=== PATIENT | male | born 1970 | race African-American/Black ===

== ENCOUNTER 2017-06-04 22:33 | Emergency (ER) | payer OTHER ==
[~2017-06-04] VITALS: Ht 180.3 cm; Wt 74.8 kg
[~2017-06-04 22:33] MED LIST: ASCO500T9 PO; HYDR-3326 PO; LACT1CAP72 PO; LEVO500T2 PO; MULT-24 PO; SODI473S8 TOP; Zinc Sulfate PO
[2017-06-04 23:57] VITALS: BP 131/69
--- NOTE | 2017-06-05 00:47 | NUR ---
URINE SAMPLE OBTAINED AND SENT TO LAB.
[2017-06-05 00:55] LABS: APPEARANCE,URINE CLOUDY (CLEAR); BILIRUBIN,URINE NEGATIVE (NEGATIVE); BLOOD, URINE 3+ Ery/uL (NEGATIVE); KETONES,URINE NEGATIVE (NEGATIVE); LEUKOCYTE ESTERASE ,URINE 2+ (NEGATIVE); NITRITE, URINE POSITIVE (NEGATIVE); PROTEIN,URINE 2+ mg/dl (NEGATIVE); UGLUCOSE NEGATIVE (NEGATIVE)
[2017-06-05 00:56] LABS: COLOR,URINE DARK YELLOW (YELLOW)
[2017-06-05 01:04] LABS: BACTERIA,URINE Moderate /HPF (None Seen); RBC,URINE 81-100 /HPF (0-2); SQUAMOUS EPITHELIAL CELL,UR Rare /HPF (None Seen); WBC,URINE TOO NUMEROUS TO COUN /HPF (0-3)
[2017-06-05] MEDS ORDERED: CEFTRIAXONE 1 G VIAL ONE (01:28)
[2017-06-05] MEDS ORDERED: LIDOCAINE /MPF 1% VIAL 5 ML VIAL ONE (01:29)
[2017-06-05] MEDS ORDERED: CEFTRIAXONE 1 G VIAL IM ONE (01:30)
[2017-06-05] MEDS ORDERED: ACETAMINOPHEN ES 500 MG TABLET ONE (01:50)
[2017-06-05] MEDS ORDERED: ACETAMINOPHEN 325 MG TABLET PO ONE (02:00)
== END 2017-06-05 02:24 | disposition home or self-care (01) ==
LOC: ER 22:33
DX: M25.562 Pain in left knee (principal); N39.0 Urinary tract infection, site not specified; F32.9 Major depressive disorder, single episode, unspecified; F10.10 Alcohol abuse, uncomplicated; Z98.890 Other specified postprocedural states; Z88.2 Allergy status to sulfonamides; Z88.8 Allergy status to other drugs, medicaments and biological substances; V03.99XA Pedestrian with other conveyance injured in collision with car, pick-up truck or van, unspecified whether traffic or nontraffic accident, initial encounter; Y93.89 Activity, other specified; Y92.413 State road as the place of occurrence of the external cause; Y99.8 Other external cause status
CPT/HCPCS: 73564-TC; 81000-TC; 87086-TC; 87186-TC; A4606; J0696; J3490; Z7610

== ENCOUNTER 2017-12-28 14:18 | Inpatient (IN) | payer OTHER ==
[~2017-12-28] VITALS: Ht 180.3 cm; Wt 74.8 kg
[~2017-12-28 14:18] MED LIST changes: -HYDR-3326 PO; +HYDR-3974 PO
[2017-12-28] MEDS ORDERED: MORPHINE SULFATE INJ 2 MG/ML DISP.SYRIN ONE (14:46)
[2017-12-28] MEDS ORDERED: CEFTRIAXONE 1 G VIAL ONE (14:47)
[2017-12-28] MEDS ORDERED: PIPERACILLIN /TAZOBACTAM 3.375 G VIAL IV ONE (14:47)
[2017-12-28] MEDS ORDERED: ONDANSETRON HCL/PF 4 MG/2 ML VIAL ONE (14:47)
[2017-12-28] MEDS ORDERED: CLIN300C11 PO (14:55)
[2017-12-28] MEDS ORDERED: HYDR-548 PO (14:55)
[2017-12-28] MEDS ORDERED: MUPI22OI7 TD (14:55)
[2017-12-28] MEDS ORDERED: CEFTRIAXONE 1GM BAG (ER ONLY) 50 ML IV ONE (15:00)
[2017-12-28] MEDS ORDERED: IV NS 0.9% 1,000 ML BAG IV ONE (15:00)
[2017-12-28] MEDS ORDERED: PIPERACILLIN /TAZOBACTAM 3.375 G in IV D5W 50 ML IV ONE (15:00)
[2017-12-28] MEDS ORDERED: MORPHINE SULFATE INJ 2 MG/ML DISP.SYRIN IV ONE (15:00)
[2017-12-28] MEDS ORDERED: ONDANSETRON HCL/PF 4 MG/2 ML VIAL IVP ONE (15:00)
[2017-12-28] MEDS ORDERED: VANCOMYCIN 1 GM in IV D5W 250 ML IV ONE (15:00)
--- NOTE | 2017-12-28 15:03 | NUR ---
PAGED EPIC FOR PANEL - ON-CALL LAURIE DICKEY
--- NOTE | 2017-12-28 15:07 | NUR ---
CALLED NURSE SUP FOR MED/SURG BED
[2017-12-28 15:36] LABS: BASOPHILS # (AUTO) 0.2 /CMM (0.0-0.2); BASOPHILS % (AUTO) 1.5 % (0.0-2.0); EOSINOPHILS % (AUTO) 2.4 % (0.0-6.0); HEMATOCRIT 29 % (39-51); HEMOGLOBIN 8.8 g/dL (13.5-17.5); LYMPHOCYTES # (AUTO) 1.3 /CMM (0.8-4.8); MEAN CORPUSCULAR HEMOGLOBIN 20 PG (26.0-33.0); MEAN CORPUSCULAR HGB CONC 31 g/dl (31.0-36.0); MEAN CORPUSCULAR VOLUME 66 fL (80-96); MONOCYTES # (AUTO) 0.6 /CMM (0.1-1.30); MONOCYTES % (AUTO) 5.5 % (2.0-12.0); NEUTROPHILS % (AUTO) 77.6 % (43.0-81.0); PLATELET COUNT (AUTO) 705 /CMM (150-450); RDW COEFFICIENT OF VARIATION 19.7 (11.5-15.0); RED BLOOD CELL COUNT(AUTO) 4.36 MIL/uL (4.5-6.0); WHITE BLOOD COUNT (AUTO) 10.3 K/uL (4.3-11.0)
[2017-12-28 15:46] LABS: CALCIUM, SERUM 9.3 mg/dL (8.5-10.1); CREATININE 0.9 mg/dL (0.6-1.3); POTASSIUM 4.5 mmol/L (3.5-5.1)
[2017-12-28 15:50] LABS: INR 0.99 (0.85-1.15)
[2017-12-28 15:52] LABS: ALBUMIN 2.7 g/dL (3.4-5.0); BILIRUBIN,DIRECT 0.1 mg/dL (0.0-0.2); BILIRUBIN,TOTAL 0.1 mg/dL (0.2-1.0); TOTAL PROTEIN, SERUM 8.4 g/dL (6.4-8.2)
--- NOTE | 2017-12-28 15:52 | NUR ---
CALLED NURSE SUP AGAIN FOR BED
[2017-12-28] MEDS ORDERED: ENOXAPARIN SODIUM 40 MG/0.4 ML DISP.SYRIN SQ ONE (16:16)
[2017-12-28] MEDS ORDERED: Z GUARD REMEDY 2 OZ OINT TP PRN (16:30)
[2017-12-28] MEDS ORDERED: ONDANSETRON HCL/PF 4 MG/2 ML VIAL IVP PRN (16:30)
[2017-12-28] MEDS ORDERED: MAGNESIUM HYDROXIDE 30 ML UDC PO PRN (16:30)
[2017-12-28] MEDS ORDERED: MAG HYDROX/AL HYDROX/SIMETH 30 ML UDC PO PRN (16:30)
[2017-12-28] MEDS ORDERED: ACETAMINOPHEN 325 MG TABLET PO PRN (16:30)
[2017-12-28] MEDS ORDERED: ZOLPIDEM TARTRATE 5 MG TABLET PO PRN (16:30)
[2017-12-28] MEDS ORDERED: ENOXAPARIN SODIUM 40 MG/0.4 ML DISP.SYRIN SQ SCH (16:30)
--- NOTE | 2017-12-28 16:33 | NUR ---
PT GIVEN ALL FLUIDS AND ANTIBIOTICS PIV IN LEFT HAND RN REPORT GIVEN TOEDGAR, RN PT GOING TO ROOM 304
--- NOTE | 2017-12-28 16:40 | NUR ---
RECEIVED PATIENT IN NO APPARENT DISTRESS. BEDSIDE RAILS ARE UPX2. BED IS LOCKED AND LOWERED. VITAL SIGNS WITHIN NORMAL LIMITS. IV LINE IS INTACT AND PATENT. CALL LIGHT IS WITHIN REACH. WILL CONTINUE TO MONITOR.
[2017-12-28] MEDS: MUPIROCIN OINT 2% 22 GM TUBE SCH ×2 (17:00→17:46)
[2017-12-28 18:00] VITALS: BP 119/66
[2017-12-28] MEDS ORDERED: PIPERACILLIN /TAZOBACTAM 4.5 G in IV NS 0.9% 50 ML IV SCH (18:00)
--- NOTE | 2017-12-28 18:04 | NUR ---
BACTROBAN NON ADMINISTERED. NO SITE SPECIFIED OF YET. WOUND CONSULT REQUESTED.
--- NOTE | 2017-12-28 18:09 | NUR ---
MS RN CLOSING NOTES PATIENT IS RESTING IN BED IN NO APPARENT DISTRESS. BEDSIDE RAILS ARE UPX2. BED IS LOCKED AND LOWERED. CALL LIGHT IS WITHIN REACH. IV LINE IS INTACT AND PATENT. ALL NEEDS WERE MET. WILL ENDORSE CARE TO SANITATION TANK WASHER NURSE FOR KLAUDIA.
[2017-12-28] MEDS: IV NS 0.9% 1,000 ML IV PRN (18:36)
[2017-12-28] MEDS: HYDROCODONE/APAP 5/325MG 1 EACH TABLET PO PRN (18:40)
--- NOTE | 2017-12-28 19:30 | NUR ---
RN MS NOTES RECEIVED PATIENT IN BED AWARE. ALERT AND ORIENTED X4. VERBALLY RESPONSIVE. BREATHING EVEN AND UNLABORED. NO SOB NOTED. CURRENTLY WITH COMPLAINTS OF PAIN ON RIGHT HAND. INFORMED PATIENT THAT I WILL LOOK THROUGH HIS MEDICATIONS AND SEE WHAT I CAN GIVE HIM FOR PAIN - AGREED. IV LINE ON ON LEFT HAND #20 INTACT AND PATENT. ALL OTHER NEEDS ATTENDED TO. CALL LIGHT WITHIN REACH. BED ON LOWEST LOCKED POSITION. WILL CONTINUE TO MONITOR.
[2017-12-28 20:00] VITALS: BP 127/66
[2017-12-28] MEDS: ZOSYN IVPB 3.375 G in IV D5W 50ml IV SCH (23:34)
[2017-12-29] MEDS: HYDROCODONE/APAP 5/325MG 1 EACH TABLET PO PRN ×5 (02:36→21:16)
[2017-12-29] MEDS: ZOSYN IVPB 3.375 G in IV D5W 50ml IV SCH ×4 (05:30→23:52)
--- NOTE | 2017-12-29 06:14 | NUR ---
INESSA MS NOTES PATIENT REFUSED DRESSING ON DECUBITIS ULCER ON BUTTOCKS THROUGHOUT SHIFT. PER PATIENT, HE ONLY WANTS DIAPER. LICENSED SALES ASSISTANT WITNESSED. Addendum: 12/29/17 at 0628 by RAGHU WALLACE RN CHARGE NURSE MADE AWARE. AWAITING WOUND CONSULT FOR FURTHER ORDERS.
--- NOTE | 2017-12-29 06:30 | NUR ---
RN MS CLOSING NOTES PATIENT ASLEEP IN BED - EASILY AROUSABLE. IN STABLE CONDITION. BREATHING EVEN AND UNLABORED. NO SOB NOTED. CURRENTLY WITH NO COMPLAINTS OF PAIN OR DISCOMFORT. NO FACIAL GRIMACING. IV LINE ON ON LEFT HAND #20 INTACT AND PATENT - RUNNING NS @ 75ML/HR. KEPT CLEAN, DRY, AND COMFORTABLE. ALL OTHER NEEDS ATTENDED TO. CALL LIGHT WITHIN REACH. BED ON LOWEST LOCKED POSITION. WILL ENDORSE TO ONCOMING NURSE FOR CONTINUITY OF CARE.
--- NOTE | 2017-12-29 07:12 | NUR ---
MS RN OPENING NOTES RECEIVED PATIENT IN STABLE CONDITION. IN NO APPARENT DISTRESS. BEDSIDE RAILS ARE UPX2. BED IS LOCKED AND LOWERED. CALL LIGHT IS WITHIN REACH. IV LINE IS INTACT AND PATENT. WILL CONTINUE TO MONITOR.
[2017-12-29 08:00] VITALS: BP 103/50
[2017-12-29] MEDS: MUPIROCIN OINT 2% 22 GM TUBE SCH ×3 (08:21→16:13)
--- NOTE | 2017-12-29 08:22 | NUR ---
NON ADMINISTERED BACTROBAN THERE IS NO INDICATION YET OF WHERE TO APPLY BACTROBAN. AWAITING WOUND CONSULT. ASKED PATIENT THE APPLICATION LOCATION SINCE THIS IS HIS HOME MEDICATION BUT PATIENT STATES HE DOES NOT TAKE THIS MEDICATION AT HOME.
[2017-12-29 08:28] VITALS: BP 103/50
--- NOTE | 2017-12-29 10:10 | NUR ---
PATIENT REFUSED BLOOD DRAW. EXPLAINED THE NEED TO GET A BLOOD SAMPLE. PATIENT CONTINUES TO REFUSE. PATIENT ASKED TO HAVE BLOOD DRAWN IN 2 HOURS. LAB WILL RETURN TO MAKE ANOTHER ATTEMPT.
[2017-12-29] MEDS: IV NS 0.9% 1,000 ML IV PRN (11:10)
--- NOTE | 2017-12-29 13:48 | NUR ---
PATIENT REFUSED WOUND CULTURE WITH GS COLLECTION. EXPLAINED RISKS AND BENEFITS BUT PATIENT CONTINUES TO REFUSE. Addendum: 12/29/17 at 1359 by KIM FRANKS RN PATIENT STATES THAT HE WILL AGREE TO DO WOUND CULTURE LATER IN THE DAY WHEN HE IS NOT IN SO MUCH PAIN AND HE HAS HAD ENOUGH REST.
[2017-12-29 16:00] VITALS: BP 124/72
--- NOTE | 2017-12-29 17:22 | NUR ---
PATIENT REFUSES TO HAVE DIAPER CHANGED.
--- NOTE | 2017-12-29 18:14 | NUR ---
MS RN CLOSING NOTES PATIENT IS RESTING IN BED. IN NO APPARENT DISTRESS. BEDSIDE RAILS ARE UPX2. BED IS LOCKED AND LOWERED. CALL LIGHT IS WITHIN REACH. IV LINE IS INTACT AND PATENT. WILL ENDORSE CARE TO ELEMENTARY EDUCATION TUTOR NURSE FOR KLAUDIA.
--- NOTE | 2017-12-29 19:23 | NUR ---
RN MS OPENING NOTES RECEIVED PATIENT IN BED AWAKE. ALERT AND ORIENTED X4. VERBALLY RESPONSIVE. BREATHING EVEN AND UNLABORED. NO SOB NOTED. CURRENTLY WITH NO COMPLAINTS OF PAIN OR DISCOMFORT. IV LINE ON LEFT HAND #20 INTACT AND PATENT. ALL OTHER NEEDS ATTENDED TO. CALL LIGHT WITHIN REACH. BED ON LOWEST LOCKED POSITION. WILL CONTINUE TO MONITOR.
[2017-12-29] MEDS ORDERED: ENOXAPARIN SODIUM 40 MG/0.4 ML DISP.SYRIN SQ SCH (21:00)
--- NOTE | 2017-12-29 21:00 | NUR ---
RN MS NOTES PATIENT REQUESTED SPECIFICALLY FOR PLASTIC TAPE TO BE WRAPPED AROUND HIS FOURTH DIGIT FINGER ON HIS RIGHT HAND BECAUSE IT'S SWOLLEN AND "AIR" SEEMS TO CAUSE HIM PAIN ON IT. INFORMED PATIENT THAT WE WOULD RATHER LEAVE IT OPEN TO AIR AND MONITOR IT. PATIENT INSISTED ON THE PLASTIC TAPE TO BE WRAPPED AROUND IT.
--- NOTE | 2017-12-30 04:37 | NUR ---
RN MS NOTES PATIENT REQUESTED FOR A PAIN MEDICATION DUE TO THE PAIN ON HIS RIGHT HAND. INFORMED HIM THAT HE CAN GET NORCO. PATIENT REFUSED NORCO, STATING THAT IT DOESN'T WORK ON HIM. PER PATIENT HE RECEIVED MORPHINE IN THE ER AND THAT WORKED BEST FOR HIM. INFORMED PATIENT THAT I WILL TALK TO THE DOCTOR FIRST AND TRY TO GET AN ORDER. PAGED DR. BARNES AND INFORMED HIM THAT PATIENT IS REQUESTING FOR MORPHINE IV FOR THE PAIN ON HIS RIGHT HAND. DR. BARNES APPROVED FOR MORPHINE 4MG IV ONE TIME ONLY - NOTED AND CARRIED OUT.
[2017-12-30] MEDS: MORPHINE SULFATE INJ 4 MG/ML DISP.SYRIN IV ONE ×2 (04:58→05:18)
--- NOTE | 2017-12-30 05:00 | NUR ---
RN MS NOTES PATIENT NOTED WITH BLOOD ON THE FOURTH FINGER ON HIS RIGHT HAND WHERE HE WANTED A TAPE WRAPPED AROUND IT. INFORMED PATIENT THAT I NEED TO TAKE THE TAPE OUT AND APPLY A NEW DRESSING - PATIENT REFUSED. ASKED PATIENT MULTIPLE TIMES AGAIN AND EXPLAINED THE RISKS OF NOT HAVING THE DRESSING CHANGED - PATIENT STILL REFUSED. PER PATIENT IT WILL JUST HURT HIM IF THE DRESSING IS CHANGED. WILL CONTINUE TO MONITOR.
--- NOTE | 2017-12-30 05:00 | NUR ---
RN MS NOTES CHECKED FOR PATENCY ON PATIENT'S LEFT HAND IV LINE PRIOR TO GIVING MORPHINE - UNSUCCESSFUL. IV LINE WAS NOT FLUSHING AND PER PATIENT, IT IS HURTING HIM THE MORE I TRY. INFORMED PATIENT THAT I WILL NEED TO START A NEW IV LINE SO THAT I CAN ADMINISTER THE MORPHINE THAT HE REQUESTED FOR. PATIENT REFUSED A NEW LINE AND ALSO THE MORPHINE NOW. ASKED PATIENT MULTIPLE TIMES IF I CAN INSERT A NEW LINE SO THAT HE CAN GET HIS PAIN MEDICATION AND SO THAT HE DOESN'T HAVE TO MISS HIS IV ANTIBIOTICS, PATIENT PERSISTENTLY REFUSED. ASKED PATIENT IF HE WOULD LIKE TO HAVE A PICC LINE INSTEAD TO MINIMIZE GETTING POKED, PATIENT ALSO REFUSED. PER PATIENT, HE KNOWS HE IS A HARD STICK AND THAT "EVERYONE SHOULD JUST STOP TRYING TO POKE [HIM] AND GET AN ALTERNATIVE. PAGED DR. BARNES AND INFORMED HIM REGARDING PATIENT'S REFUSAL FOR A NEW IV LINE. ALSO INFORMED HIM REGARDING REFUSING PICC LINE. MADE DR. BARNES AWARE THAT HE HAS A ZOSYN SCHEDULED FOR 6AM THAT HE WILL MISS. PER DR. BARNES, "IF HE REFUSES, HE REFUSES. JUST NOTE IT DOWN AND LET THE DAY DOCTOR KNOW." WILL ENDORSE TO ONCOMING NURSE TO LET DAY DOCTOR KNOW.
[2017-12-30] MEDS: HYDROCODONE/APAP 5/325MG 1 EACH TABLET PO PRN ×2 (05:21→11:29)
[2017-12-30] MEDS: ZOSYN IVPB 3.375 G in IV D5W 50ml IV SCH (06:00)
[2017-12-30 06:36] LABS: BASOPHILS % (AUTO) 0.2 % (0.0-2.0); EOSINOPHILS % (AUTO) 3.6 % (0.0-6.0); HEMATOCRIT 27 % (39-51); LYMPHOCYTES # (AUTO) 1.5 /CMM (0.8-4.8); LYMPHOCYTES % (AUTO) 16.3 % (20.0-44.0); MEAN CORPUSCULAR HEMOGLOBIN 20 PG (26.0-33.0); MEAN CORPUSCULAR HGB CONC 30 g/dl (31.0-36.0); MEAN CORPUSCULAR VOLUME 68 fL (80-96); MONOCYTES # (AUTO) 0.4 /CMM (0.1-1.30); MONOCYTES % (AUTO) 4.7 % (2.0-12.0); NEUTROPHILS # (AUTO) 6.8 /CMM (1.8-8.9); NEUTROPHILS % (AUTO) 75.2 % (43.0-81.0); PLATELET COUNT (AUTO) 632 /CMM (150-450); RDW COEFFICIENT OF VARIATION 21.2 (11.5-15.0); RED BLOOD CELL COUNT(AUTO) 3.93 MIL/uL (4.5-6.0)
[2017-12-30 06:37] LABS: CALCIUM, SERUM 8.4 mg/dL (8.5-10.1); CREATININE 0.9 mg/dL (0.6-1.3); MAGNESIUM 2.1 mg/dL (1.8-2.4); PHOSPHORUS 2.8 mg/dL (2.5-4.9)
--- NOTE | 2017-12-30 06:39 | NUR ---
RN MS CLOSING NOTES PATIENT ASLEEP IN BED - EASILY AROUSABLE. IN STABLE CONDITION. BREATHING EVEN AND UNLABORED. NO SOB NOTED. CURRENTLY WITH NO COMPLAINTS OF PAIN OR DISCOMFORT. NO FACIAL GRIMACING. LAST NORCO GIVEN AT 0521. STILL WITH SOILED DRESSING ON FOURTH FINGER ON RIGHT HAND - REFUSES TO BE CHANGED. ALL OTHER NEEDS ATTENDED TO. CALL LIGHT WITHIN REACH. BED ON LOWEST LOCKED POSITION. WILL ENDORSE TO ONCOMING NURSE FOR CONTINUITY OF CARE.
--- NOTE | 2017-12-30 07:22 | NUR ---
MS RN OPENING NOTES RECEIVED PATIENT ASLEEP IN BED, EASILY AWAKENS. HOB ELEVATED, ON ROOM AIR, RESPIRATION EVEN AND UNLABORED. NO FACIAL GRIMACING OR SIGNS OF DISCOMFORTS OBSERVED AT THIS TIME. . DRESSING ON FOURTH FINGER ON RIGHT HAND INTACT BUT SOILED, WILL TRY TO CONVINCE HIM TODAY TO HAVE IT CHANGE. IV ACCESS ON LEFT HAND APPARENTLY NOT WORKING AND PT REFUSED TO HAVE NEW IV LINE INSERTED. SAFETY MEASURES IN PLACE. CALL LIGHT WITHIN REACH. BED ON LOWEST LOCKED POSITION. WILL CONTINUE TO MONITOR PT ACCORDINGLY.
[2017-12-30 08:00] VITALS: BP 121/57
[2017-12-30] MEDS: MUPIROCIN OINT 2% 22 GM TUBE SCH (09:00)
--- NOTE | 2017-12-30 09:30 | NUR ---
RN NOTES BACTROBAN OINTMENT NO ADMINISTER, THERE IS NO INDICATION YET OF WHERE TO APPLY BACTROBAN. WOUND NURSE AT BEDSIDE ASSESSING PT AND AWARE THAT IT'S A HOME MEDICATION BUT PATIENT STATES HE DOES NOT TAKE THIS MEDICATION AT HOME.
--- NOTE | 2017-12-30 09:53 | NUR ---
WOUND CARE CONSULT: PT PRESENTS WITH MULTIPLE WOUNDS PRESENT ON ADMISSION INCLUDING LEFT AND RT BUTTOCK STAGE 4 ULCERS, RT ANTERIOR THIGH RAISED WOUND, RT 3RD AND 4TH FINGER DRESSINGS (PT REFUSED REMOVAL AND ASSESSMENT OF FINGERS). RT HEEL SCARRING NOTED WELL BILATERAL ANKLE SCARRING AND SACRAL/BUTTOCK SCARRING. ALL SKIN PROTECTION AND WOUND CARE RECOMMENDATIONS DISCUSSED WITH NURSING STAFF. DEFER TO MD FOR FINGER WOUNDS. PT REFUSED TO HAVE FINGER DRESSINGS REMOVED. FIRST STEP MATTRESS ORDERED. PT IS PARAPLEGIC. SURGICAL CONSULT RECOMMENDED. WILL SEE PRN. Kathy Willett IN AGREEMENT WITH PLAN OF CARE. Addendum: 12/30/17 at 0956 by SRINIVAS SHAIKH WNDNU Amended: Links added.
[2017-12-30] MEDS ORDERED: DAKINS QUARTER STRENGTH (0.125%) 480 ML BOTTLE TOP SCH (10:00)
[2017-12-30] MEDS ORDERED: HYDROCODONE/APAP 10/325MG 1 EA TABLET PO PRN (11:00)
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
--- NOTE | 2017-12-30 11:38 | NUR ---
RN NOTES WOUND TREATMENTS DONE ON PT'S B/L BUTTOCKS AND RIGHT THIGH WOUNDS. WOUND CULTURE DONE ON SACRAL WOUNDS. PT REFUSED DRESSINGS ON HIS 2ND AND 3RD FINGERS ON RIGHT HAND TO BE REMOVED. PRN NORCO 5/325 GIVEN FOR PAIN ON HIS RIGHT HAND AND LOWER LEGS. WILL CONTINUE TO MONITOR
[2017-12-30] MEDS ORDERED: LEVOFLOXACIN (750 MG) 750 MG TABLET PO SCH (12:00)
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
--- NOTE | 2017-12-30 13:46 | NUR ---
RN NOTES PATIENT FOR DISCHARGE HOME THIS AFTERNOON. HE IS IN STABLE CONDITION TO GO HOME WITH DISCHARGE INSTRUCTIONS TO CONTINUE ANTIBIOTIC FROM PRE-ADMISSION. FOLLOW OUTPATIENT WITH WOUND CARE CENTER NEXT TO HOSPITAL. WILL INFORMED AND EXPLAINED TO PATIENT.
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
== END 2017-12-30 14:00 | disposition home or self-care (01) | DRG 383 ==
LOC: ER 14:21 → MED 16:26
PROVIDERS: ADMIT Internal Medicine; ATTEND Internal Medicine
DX: L03.113 Cellulitis of right upper limb (principal); G82.20 Paraplegia, unspecified; L02.415 Cutaneous abscess of right lower limb; Z59.0 Homelessness; K21.9 Gastro-esophageal reflux disease without esophagitis; N31.9 Neuromuscular dysfunction of bladder, unspecified; F32.9 Major depressive disorder, single episode, unspecified; T14.8XXS Other injury of unspecified body region, sequela; W34.00XS Accidental discharge from unspecified firearms or gun, sequela; Z88.1 Allergy status to other antibiotic agents; Z88.2 Allergy status to sulfonamides; Z79.899 Other long term (current) drug therapy; M54.9 Dorsalgia, unspecified; X58.XXXA Exposure to other specified factors, initial encounter; F43.10 Post-traumatic stress disorder, unspecified; Y99.9 Unspecified external cause status; Z83.3 Family history of diabetes mellitus; Z91.19 Patient's noncompliance with other medical treatment and regimen; F12.929 Cannabis use, unspecified with intoxication, unspecified
CPT/HCPCS: 36415; 73120-TC; 73552; 80048-TC; 80076-TC; 83605-TC; 83690-TC; 83735-TC; 84100-TC; 85025-TC; 85730-TC; 87040-TC; 87070-TC; 87081-TC; A4216; A4606; A6253; A6402; A6403; J0696; J1650; J2270; J2405; J2543; J3370; J7030; J7060; Z7610

== ENCOUNTER 2018-05-29 14:36 | Emergency (ER) | payer OTHER ==
[~2018-05-29] VITALS: Ht 165.1 cm; Wt 59.0 kg
[~2018-05-29 14:36] MED LIST changes: -ASCO500T9 PO; +CLIN300C11 PO; -HYDR-3974 PO; +HYDR-4354 PO; -LACT1CAP72 PO; -LEVO500T2 PO; -MULT-24 PO; +MUPI22OI7 TD; -SODI473S8 TOP; -Zinc Sulfate PO
[2018-05-29 15:08] VITALS: BP 123/82
[2018-05-29] MEDS ORDERED: HYDROCODONE/APAP 10/325MG 1 EA TABLET PO ONE (16:00)
[2018-05-29] MEDS ORDERED: HYDROCODONE/APAP 5/325MG 1 EACH TABLET ONE (16:07)
--- NOTE | 2018-05-29 16:09 | NUR ---
BOBBI received a call from Portia in the ED requesting to see the pt. for homeless resources. Pt. is a 47 year old male who came to [facility] ED complaining of right toe infection. BOBBI is familiar with the pt. from a previous admission in 2018. BOBBI met with pt. bedside. Pt. is alert and oriented x 4. Pt. appears depressed and was crying. Pt. states he is tired and wants to . SW asked the pt. if he is suicidal with a plan. Pt. stated, " no, i am not suicidal, I like myself too much." Pt. is wheelchair bound and is able to transfer himself to the wheelchair independently. BOBBI gave pt. the following resources: [phone] [facility] program list and informed pt. of the apple picker times and location for [facility] is [address] [place]. [place] ;Homeless resource directory list, list of mental health clinics such as Mental Health clinics, [facility] Homeless Program [address] [place], [place] [id number] [facility] [address] [facility], 2nd [place] [address] Main Number: Adult Full Service Partnership (AFSP): Contact [facility] [address] [place] [address] Health Clinics: [facility] [address] [facility], [address] [place]. [place] Hours: M, T, Th, F 8:30AM-4:30PM Walk-ins allowed Provide medical screening and pharmacy [facility] [address] [address] [place] [id number] Hours M-F 8AM-3:30PM Walk-ins allowed Provide medical screening and pharmacy Pt. was given a meal and tap card for transportation. Homeless Patient Waiver Form was signed by pt. with INESSA Jay present and placed in pt's chart.
[2018-05-29] MEDS ORDERED: HYDROCODONE/APAP 10/325MG 1 EA TABLET ONE (16:12)
== END 2018-05-29 16:24 | disposition home or self-care (01) ==
LOC: ER 14:37
DX: B35.1 Tinea unguium (principal); G82.20 Paraplegia, unspecified; L30.9 Dermatitis, unspecified; F12.90 Cannabis use, unspecified, uncomplicated; F32.9 Major depressive disorder, single episode, unspecified; D64.9 Anemia, unspecified; Z99.3 Dependence on wheelchair; Z59.0 Homelessness; Z98.890 Other specified postprocedural states; Z88.2 Allergy status to sulfonamides; Z88.1 Allergy status to other antibiotic agents
CPT/HCPCS: 99282; A4606; Z7610

== ENCOUNTER 2019-02-07 14:36 | Emergency (ER) | payer OTHER ==
[~2019-02-07] VITALS: Ht 165.1 cm; Wt 59.0 kg
[2019-02-07 14:36] VITALS: BP 99/88
--- NOTE | 2019-02-07 15:01 | NUR ---
SEEN AND EXAMINED BY .
[2019-02-07] MEDS ORDERED: HYDROCODONE/APAP 5/325MG 1 EACH TABLET ONE (15:04)
--- NOTE | 2019-02-07 15:26 | NUR ---
WOUND CLEANING AND DIAPER CHANGE DONE.
[2019-02-07] MEDS ORDERED: HYDROCODONE/APAP 5/325MG 1 EACH TABLET PO ONE (15:30)
--- NOTE | 2019-02-07 15:35 | NUR ---
Patient discharged to home in stable condition. Written and verbal after care instructions given. Patient verbalizes understanding of instruction.
== END 2019-02-07 15:36 | disposition home or self-care (01) ==
LOC: ER 14:36
DX: L02.31 Cutaneous abscess of buttock (principal); G82.20 Paraplegia, unspecified; G83.9 Paralytic syndrome, unspecified; E11.9 Type 2 diabetes mellitus without complications; F17.200 Nicotine dependence, unspecified, uncomplicated; F32.9 Major depressive disorder, single episode, unspecified; D64.9 Anemia, unspecified; Z98.890 Other specified postprocedural states; Z88.2 Allergy status to sulfonamides; Z60.2 Problems related to living alone
CPT/HCPCS: 99283; A6253; A6403 ×2

== ENCOUNTER 2019-03-04 12:14 | Emergency (ER) | payer OTHER ==
[~2019-03-04] VITALS: Ht 180.3 cm; Wt 74.8 kg
[2019-03-04 12:20] VITALS: BP 111/66
--- NOTE | 2019-03-04 12:23 | NUR ---
CALLED IN WAITING ROOM. NO ANSWER.
[2019-03-04] MEDS ORDERED: LIDOCAINE 1%-EPI 1:100,000 20 ML VIAL TP ONE (13:30)
[2019-03-04 13:36] LABS: BASOPHILS # (AUTO) 0.1 /CMM (0.0-0.2); BASOPHILS % (AUTO) 1.5 % (0.0-2.0); EOSINOPHILS % (AUTO) 2.7 % (0.0-6.0); HEMATOCRIT 32 % (39-51); HEMOGLOBIN 9.9 g/dL (13.5-17.5); LYMPHOCYTES % (AUTO) 20.9 % (20.0-44.0); MEAN CORPUSCULAR HGB CONC 31 g/dl (31.0-36.0); MEAN CORPUSCULAR VOLUME 77 fL (80-96); MONOCYTES # (AUTO) 0.5 /CMM (0.1-1.30); MONOCYTES % (AUTO) 9.5 % (2.0-12.0); NEUTROPHILS # (AUTO) 3.2 /CMM (1.8-8.9); NEUTROPHILS % (AUTO) 65.4 % (43.0-81.0); PLATELET COUNT (AUTO) 467 /CMM (150-450); RED BLOOD CELL COUNT(AUTO) 4.14 MIL/uL (4.5-6.0); WHITE BLOOD COUNT (AUTO) 4.9 K/uL (4.3-11.0)
[2019-03-04] MEDS ORDERED: HYDROCODONE/APAP 10/325MG 1 EA TABLET ONE (13:42)
[2019-03-04 13:50] LABS: CALCIUM, SERUM 8.8 mg/dL (8.5-10.1); CREATININE 0.9 mg/dL (0.6-1.3); POTASSIUM 3.8 mmol/L (3.5-5.1)
[2019-03-04] MEDS ORDERED: HYDROCODONE/APAP 10/325MG 1 EA TABLET PO ONE (14:00)
[2019-03-04] MEDS ORDERED: LIDOCAINE 1%-EPI 1:100,000 20 ML VIAL ONE (14:00)
[2019-03-04] MEDS ORDERED: CLINDAMYCIN 600 MG in IV D5W 100 ML IV ONE (14:30)
[2019-03-04] MEDS ORDERED: CEFTRIAXONE 1GM BAG (ER ONLY) 1 GM/50 ML PIGGYBACK IV ONE (14:30)
== END 2019-03-04 16:31 | disposition home or self-care (01) ==
LOC: ER 12:14
DX: L02.31 Cutaneous abscess of buttock (principal); G82.20 Paraplegia, unspecified; F32.9 Major depressive disorder, single episode, unspecified; F17.200 Nicotine dependence, unspecified, uncomplicated; F10.10 Alcohol abuse, uncomplicated; Y90.9 Presence of alcohol in blood, level not specified; Z98.890 Other specified postprocedural states; Z88.2 Allergy status to sulfonamides; Z60.2 Problems related to living alone; Z79.899 Other long term (current) drug therapy; Z88.1 Allergy status to other antibiotic agents
CPT/HCPCS: 10060; 36415; 80048; 85025; 87040 ×2; 96365; 96367; 99283; A6403; J0696; J3490 ×2; J7060

== ENCOUNTER 2019-03-30 13:49 | Emergency (ER) | payer OTHER ==
[~2019-03-30] VITALS: Ht 180.3 cm; Wt 74.8 kg
[2019-03-30 14:02] VITALS: BP 122/71
--- NOTE | 2019-03-30 14:21 | NUR ---
patient left and refused to sign discharge paper MD made aware.
== END 2019-03-30 14:21 | disposition home or self-care (01) ==
LOC: ER 13:49
DX: L89.159 Pressure ulcer of sacral region, unspecified stage (principal); L08.89 Other specified local infections of the skin and subcutaneous tissue; G82.20 Paraplegia, unspecified; F32.9 Major depressive disorder, single episode, unspecified; F10.10 Alcohol abuse, uncomplicated; F17.200 Nicotine dependence, unspecified, uncomplicated; Y90.9 Presence of alcohol in blood, level not specified; Z60.2 Problems related to living alone; Z79.899 Other long term (current) drug therapy; Z88.2 Allergy status to sulfonamides; Z88.8 Allergy status to other drugs, medicaments and biological substances

== ENCOUNTER → 2019-06-04 | Emergency (ER) | payer OTHER ==
--- NOTE | 2019-06-04 18:34 | NUR ---
PT CALED TO TRIAGE, PT NOT IN WAITING ROOM
== END | disposition left against medical advice (07) ==
LOC: ER 17:59
DX: Z53.21 Procedure and treatment not carried out due to patient leaving prior to being seen by health care provider (principal)

== ENCOUNTER 2020-03-10 16:32 | Emergency (ER) | payer OTHER ==
[~2020-03-10] VITALS: Ht 177.8 cm; Wt 70.8 kg
--- NOTE | 2020-03-10 17:07 | NUR ---
ER Shane informed this SW about patient wanting homeless resources. SW met with the patient. Patient is a 49 year-old male in a wheelchair. Patient expressed interest in wanting to be placed in a facility. SW provided the following information in patient's chart. Substance Abuse resources provided included: [facility] Substance Abuse Self-Helpline ([facility]) ; [facility] [address] [facility]. [place] [id number] ; [facility] [address] [facility] [address] ; [facility] [address] [facility] [phone] ; [facility] [address] [facility] [phone] ; [facility] [address] [facility] [phone] ; [facility] [address] [facility] [phone] ; [facility] Substance Abuse Helpline([facility])-[facility] ; [facility] ; [facility] [place]; [facility] [place]; [facility] [place] aida; [place] [facility] [place]; [place]; [facility] [place]; [facility], [facility]. Grants; Alcoholics Anonymous -SFV; Xk-Utoc-Xbenymj ; Marijuana Anonymous -SFV; Narcotics Anonymous www.na.org. Year-round shelters : [facility] [address] [place] [address] ; [facility] [place] [address] [place] [address]; [place] [facility] [facility] [address] [facility] [phone] Hygiene: [facility]: [address] [place] ; [facility] [address] [facility] ; [facility] [address] [place] . Food Resources: [facility] [facility] at [facility]- [address] [place]; Meet Each Need wit Dignity ([facility]) [address] [facility]. [place]; [facility] [address] [facility]; [facility] [address] [place] [address] [place]. Mental Health resources provided: [facility] [address] [place] [address] ; [facility] [address], [place] [address] ; [facility] [address] [place] [address] ; [facility] [address] [place], [place] [phone]
--- NOTE | 2020-03-10 17:16 | NUR ---
PT C/O URI SYMPTOMS. DENIES CP, SOB, DIZZINESS, N/V AT THIS TIME. PT SEEN & EVAL'D BY DR. MCCONNELL. COVID TEST DONE & SENT TO LAB.
[2020-03-10 17:26] LABS: BASOPHILS # (AUTO) 0.1 /CMM (0.0-0.2); BASOPHILS % (AUTO) 1.1 % (0.0-2.0); EOSINOPHILS % (AUTO) 2.7 % (0.0-6.0); HEMATOCRIT 34 % (39-51); HEMOGLOBIN 10.7 g/dL (13.5-17.5); LYMPHOCYTES # (AUTO) 1.3 /CMM (0.8-4.8); LYMPHOCYTES % (AUTO) 15.7 % (20.0-44.0); MEAN CORPUSCULAR HGB CONC 32 g/dl (31.0-36.0); MEAN CORPUSCULAR VOLUME 83 fL (80-96); MONOCYTES # (AUTO) 0.6 /CMM (0.1-1.30); NEUTROPHILS # (AUTO) 6.1 /CMM (1.8-8.9); NEUTROPHILS % (AUTO) 73.5 % (43.0-81.0); PLATELET COUNT (AUTO) 622 /CMM (150-450); RED BLOOD CELL COUNT(AUTO) 4.08 MIL/uL (4.5-6.0); WHITE BLOOD COUNT (AUTO) 8.3 K/uL (4.3-11.0)
[2020-03-10 17:30] LABS: CALCIUM, SERUM 8.7 mg/dL (8.5-10.1); POTASSIUM 4.1 mmol/L (3.5-5.1)
[2020-03-10 17:36] LABS: BILIRUBIN,TOTAL 0.2 mg/dL (0.2-1.0); TOTAL PROTEIN, SERUM 8.3 g/dL (6.4-8.2)
[2020-03-10] MEDS ORDERED: IOHEXOL-300 100 ML VIAL IV ONE (17:46)
[2020-03-10] MEDS ORDERED: IV NS 0.9% 250 ML IV ONE (17:46)
--- NOTE | 2020-03-10 19:38 | NUR ---
Patient discharged to home in stable condition. Written and verbal after care instructions given. Patient verbalizes understanding of instruction. Pt refused to sign MD ced aware.
[2020-03-10 19:39] VITALS: BP 130/77
--- NOTE | 2020-03-10 19:40 | NUR ---
IV removed. Catheter intact and site benign. Pressure and 4x4 applied to site. No bleeding noted.
== END 2020-03-10 19:41 | disposition home or self-care (01) ==
LOC: ER 16:36
DX: D47.3 Essential (hemorrhagic) thrombocythemia (principal); D64.9 Anemia, unspecified; R10.33 Periumbilical pain; Z59.0 Homelessness; Z20.828 Contact with and (suspected) exposure to other viral communicable diseases; Z88.2 Allergy status to sulfonamides; G82.20 Paraplegia, unspecified; T14.8XXS Other injury of unspecified body region, sequela; L89.90 Pressure ulcer of unspecified site, unspecified stage; R03.0 Elevated blood-pressure reading, without diagnosis of hypertension
CPT/HCPCS: 36415; 74177; 80048; 80076; 83690; 85025; 87426; 99285; C9803; J7050; Q9967

== ENCOUNTER 2022-01-21 15:39 | Emergency (ER) | payer OTHER ==
[~2022-01-21] VITALS: Ht 180.3 cm; Wt 77.1 kg
[~2022-01-21 15:39] MED LIST changes: -CLIN300C11 PO; +CLIN300C12 PO
--- NOTE | 2022-01-21 15:41 | NUR ---
[facility] ER BED 15, HOMELESS, L BUTTOCK INFECTION, "SMELLS BAD" HOSPITALIZED IN [place] A WEEK AGO, SAME REASON, AAOX3, BREATHING EVEN AND NON LABORED, CONNECTED TO MONITOR.
[2022-01-21] MEDS ORDERED: PIPERACILLIN /TAZOBACTAM 3.375 G in IV D5W 50 ML IV ONE (17:00)
[2022-01-21] MEDS ORDERED: VANCOMYCIN 1 GM in IV D5W 250 ML IV ONE (17:00)
[2022-01-21] MEDS ORDERED: IOHEXOL-300 100 ML VIAL IV ONE (17:05)
[2022-01-21] MEDS ORDERED: IV NS 0.9% 250 ML IV ONE (17:06)
[2022-01-21] MEDS ORDERED: CT SWABBABLE VALVE TRANS SET 1 EA INFUS.SET MC ONE (17:06)
--- NOTE | 2022-01-21 17:20 | NUR ---
COVID SWAB COLLECTED AND SENT TO LAB
--- NOTE | 2022-01-21 17:23 | NUR ---
PT TAKEN TO RADIOLOGY FOR CT
[2022-01-21 17:31] LABS: BASOPHILS % (AUTO) 0.4 % (0.0-2.0); EOSINOPHILS % (AUTO) 3.3 % (0.0-6.0); HEMATOCRIT 24 % (39-51); HEMOGLOBIN 7.5 g/dL (13.5-17.5); LYMPHOCYTES # (AUTO) 1.7 K/uL (0.8-4.8); MEAN CORPUSCULAR HGB CONC 32 g/dl (31.0-36.0); MEAN CORPUSCULAR VOLUME 73 fL (80-96); MONOCYTES % (AUTO) 9.1 % (2.0-12.0); NEUTROPHILS # (AUTO) 7.7 K/uL (1.8-8.9); NEUTROPHILS % (AUTO) 71.2 % (43.0-81.0); PLATELET COUNT (AUTO) 634 K/uL (150-450); RED BLOOD CELL COUNT(AUTO) 3.22 MIL/uL (4.5-6.0); WHITE BLOOD COUNT (AUTO) 10.8 K/uL (4.3-11.0)
[2022-01-21 17:46] LABS: CARBON DIOXIDE 31 mmol/L (21-32); CHLORIDE 104 mmol/L (98-107); CREATININE 0.9 mg/dL (0.6-1.3); GLUCOSE 92 mg/dL (74-106); POTASSIUM 3.6 mmol/L (3.5-5.1); SODIUM SERUM 139 mmol/L (136-145); UREA NITROGEN, BLOOD 21 mg/dL (7-18)
--- NOTE | 2022-01-21 17:50 | NUR ---
MOVE SHEET SUBMITTED.
[2022-01-21 18:01] LABS: ALANINE AMINOTRANSFERASE 18 U/L (12-78); ALBUMIN 2.4 g/dL (3.4-5.0); ALKALINE PHOSPHATASE 113 U/L (46-116); ASPARTATE AMINOTRANSFERASE 15 U/L (15-37); BILIRUBIN,DIRECT 0.1 mg/dL (0.0-0.2); BILIRUBIN,TOTAL 0.2 mg/dL (0.2-1.0); TOTAL PROTEIN, SERUM 7.9 g/dL (6.4-8.2)
[2022-01-21] MEDS ORDERED: IV NS 0.9% 1,000 ML BAG IV ONE (18:30)
[2022-01-21 19:04] LABS: EOSINOPHILS % (MANUAL) 2 % (0-4); LYMPHOCYTES % (MANUAL) 18 % (16-48); MONOCYTES % (MANUAL) 4 % (0-11.0); NEUTROPHILS % (MANUAL) 76 (42-76)
[2022-01-21] MEDS ORDERED: CEPH500C2 PO (19:08)
[2022-01-21] MEDS ORDERED: DOXY100C2 PO (19:08)
--- NOTE | 2022-01-21 19:19 | NUR ---
Patient does not wish to proceed with medical care recommended by Dr. Rutledge. Patient given information related to possible complications, up to and including , which could occur as a result of leaving the hospital at this time. Patient verbalizes understanding of risks involved due to leaving against medical advice. Patient has signed AMA form.
--- NOTE | 2022-01-21 19:20 | NUR ---
IV removed. Catheter intact and site benign. Pressure and 4x4 applied to site. No bleeding noted.Patient discharged to home in stable condition. Written and verbal after care instructions given. Patient verbalizes understanding of instruction.
[2022-01-21 19:23] VITALS: BP 114/66
== END 2022-01-21 19:24 | disposition left against medical advice (07) ==
LOC: ER 15:43
DX: M86.60 Other chronic osteomyelitis, unspecified site (principal); E87.2 Acidosis; D50.9 Iron deficiency anemia, unspecified; D75.839 Thrombocytosis, unspecified; R70.0 Elevated erythrocyte sedimentation rate; R79.82 Elevated C-reactive protein (CRP); Z53.29 Procedure and treatment not carried out because of patient's decision for other reasons; I49.3 Ventricular premature depolarization; L89.159 Pressure ulcer of sacral region, unspecified stage; G82.20 Paraplegia, unspecified; Z59.00 Homelessness unspecified; Z91.19 Patient's noncompliance with other medical treatment and regimen; T14.90XS Injury, unspecified, sequela; X95.9XXS Assault by unspecified firearm discharge, sequela; Z20.822 Contact with and (suspected) exposure to COVID-19
CPT/HCPCS: 99291; 74177; 96365; 71045; 96367; 87426; 93005; 84145; 85025; 80048; 87040 ×2; 83605; 80076; 85652; 36415; 84484; 85730; 86140; 85007; J3370; J2543; J7060; J7030; J7050; Q9967; C9803

== ENCOUNTER 2022-01-24 22:57 | Emergency (ER) | payer OTHER ==
[~2022-01-24 22:57] MED LIST changes: +CEPH500C2 PO; -CLIN300C12 PO; +DOXY100C2 PO; -HYDR-4354 PO; -MUPI22OI7 TD
--- NOTE | 2022-01-25 01:53 | NUR ---
CALLED FOR TRIAGE, NO ANSWER
--- NOTE | 2022-01-25 02:01 | NUR ---
CALLED PT TO TRIAGE ROOM. NO RESPONSE
--- NOTE | 2022-01-25 02:17 | NUR ---
CALLED PT FOR TRIAGE. BORA ISSA
== END 2022-01-25 02:19 | disposition home or self-care (01) ==
LOC: ER 22:59
DX: Z53.21 Procedure and treatment not carried out due to patient leaving prior to being seen by health care provider (principal)

== ENCOUNTER 2022-01-25 08:08 | Inpatient (IN) | payer OTHER ==
[~2022-01-25] VITALS: Ht 167.6 cm; Wt 59.0 kg
[2022-01-25] MEDS ORDERED: CEFEPIME 1 GM in IV D5W 50 ML IV ONE (10:00)
[2022-01-25] MEDS ORDERED: VANCOMYCIN 1 GM in IV D5W 250 ML IV ONE (10:00)
[2022-01-25 10:26] LABS: BASOPHILS % (AUTO) 0.4 % (0.0-2.0); EOSINOPHILS % (AUTO) 3.9 % (0.0-6.0); HEMATOCRIT 24 % (39-51); HEMOGLOBIN 7.6 g/dL (13.5-17.5); LYMPHOCYTES # (AUTO) 1.5 K/uL (0.8-4.8); LYMPHOCYTES % (AUTO) 16.1 % (20.0-44.0); MEAN CORPUSCULAR HGB CONC 31 g/dl (31.0-36.0); MEAN CORPUSCULAR VOLUME 74 fL (80-96); MONOCYTES # (AUTO) 0.5 K/uL (0.1-1.30); MONOCYTES % (AUTO) 5.4 % (2.0-12.0); NEUTROPHILS % (AUTO) 74.2 % (43.0-81.0); PLATELET COUNT (AUTO) 661 K/uL (150-450); RED BLOOD CELL COUNT(AUTO) 3.29 MIL/uL (4.5-6.0); WHITE BLOOD COUNT (AUTO) 9.4 K/uL (4.3-11.0)
[2022-01-25 10:45] LABS: ALBUMIN 2.2 g/dL (3.4-5.0); BILIRUBIN,TOTAL 0.1 mg/dL (0.2-1.0); TOTAL PROTEIN, SERUM 7.7 g/dL (6.4-8.2)
[2022-01-25 10:49] LABS: CREATININE 0.8 mg/dL (0.6-1.3); POTASSIUM 4.6 mmol/L (3.5-5.1)
[2022-01-25 10:51] LABS: C-REACTIVE PROTEIN 7.8 mg/dL (0.0-0.9)
[2022-01-25 11:00] LABS: BILIRUBIN,DIRECT 0.1 mg/dL (0.0-0.2)
[2022-01-25] MEDS ORDERED: IV NS 0.9% 250 ML IV ONE (11:08)
[2022-01-25] MEDS ORDERED: CT SWABBABLE VALVE TRANS SET 1 EA INFUS.SET MC ONE (11:08)
[2022-01-25] MEDS ORDERED: IOHEXOL-300 100 ML VIAL IV ONE (11:08)
[2022-01-25] MEDS ORDERED: MAG HYDROX/AL HYDROX/SIMETH 30 ML UDC PO PRN (11:30)
[2022-01-25] MEDS ORDERED: MAGNESIUM HYDROXIDE 30 ML UDC PO PRN (11:30)
[2022-01-25] MEDS ORDERED: ACETAMINOPHEN 325 MG TABLET PO PRN (11:30)
[2022-01-25] MEDS ORDERED: ONDANSETRON HCL/PF 4 MG/2 ML VIAL IVP PRN (11:30)
[2022-01-25] MEDS ORDERED: Z GUARD REMEDY 4 OZ OINT TP PRN (11:30)
[2022-01-25 12:14] LABS: BASOPHILS % (MANUAL) 0 % (0.0-2.0); EOSINOPHILS % (MANUAL) 1 % (0-4); LYMPHOCYTES % (MANUAL) 18 % (16-48); MONOCYTES % (MANUAL) 5 % (0-11.0); NEUTROPHILS % (MANUAL) 76 (42-76)
[2022-01-25] MEDS: ZOSYN IVPB 3.375 G in IV D5W 50ml IV SCH (18:41)
[2022-01-25 18:50] VITALS: BP 128/69
[2022-01-25] MEDS: IV 1/2NS 1000 ML 1,000 ML IV PRN (19:07)
[2022-01-25] MEDS: VANCOMYCIN 1.25 GM in IV D5W 250 ML IV SCH (20:37)
[2022-01-25] MEDS: ENOXAPARIN SODIUM 40 MG/0.4 ML DISP.SYRIN SQ SCH (20:48)
[2022-01-25] MEDS ORDERED: ZOLPIDEM TARTRATE 5 MG TABLET PO PRN (22:00)
[2022-01-25 22:42] VITALS: BP 133/87
[2022-01-26] MEDS: ZOSYN IVPB 3.375 G in IV D5W 50ml IV SCH ×4 (00:29→17:53)
[2022-01-26] MEDS: PANTOPRAZOLE 40 MG TABLET.DR PO SCH ×2 (07:30→07:51)
[2022-01-26 08:00] VITALS: BP 131/69
[2022-01-26] MEDS: VANCOMYCIN 1.25 GM in IV D5W 250 ML IV SCH ×2 (08:06→20:15)
[2022-01-26 08:31] LABS: BASOPHILS # (AUTO) 0.1 K/uL (0.0-0.2); EOSINOPHILS % (AUTO) 3.4 % (0.0-6.0); HEMATOCRIT 26 % (39-51); LYMPHOCYTES # (AUTO) 1.1 K/uL (0.8-4.8); LYMPHOCYTES % (AUTO) 14.7 % (20.0-44.0); MEAN CORPUSCULAR HGB CONC 31 g/dl (31.0-36.0); MEAN CORPUSCULAR VOLUME 74 fL (80-96); MONOCYTES # (AUTO) 0.4 K/uL (0.1-1.30); MONOCYTES % (AUTO) 5.6 % (2.0-12.0); NEUTROPHILS # (AUTO) 5.8 K/uL (1.8-8.9); NEUTROPHILS % (AUTO) 75.3 % (43.0-81.0); PLATELET COUNT (AUTO) 661 K/uL (150-450); RED BLOOD CELL COUNT(AUTO) 3.43 MIL/uL (4.5-6.0); WHITE BLOOD COUNT (AUTO) 7.8 K/uL (4.3-11.0)
[2022-01-26 08:36] LABS: CALCIUM, SERUM 8.8 mg/dL (8.5-10.1); MAGNESIUM 2.3 mg/dL (1.8-2.4); PHOSPHORUS 3.6 mg/dL (2.5-4.9); POTASSIUM 3.9 mmol/L (3.5-5.1)
[2022-01-26] MEDS: DAKINS QUARTER STRENGTH (0.125%) 480 ML BOTTLE TOP SCH (09:34)
[2022-01-26] MEDS: HYDROCODONE/APAP 5/325MG TABLET PO PRN ×2 (10:52→17:52)
[2022-01-26] MEDS: PROSOURCE / PROSTAT (PYXIS) 30 ML UDC GT SCH (17:43)
[2022-01-26] MEDS: ENOXAPARIN SODIUM 40 MG/0.4 ML DISP.SYRIN SQ SCH (21:00)
[2022-01-27] MEDS: ZOSYN IVPB 3.375 G in IV D5W 50ml IV SCH ×6 (06:00→23:45)
[2022-01-27] MEDS: PANTOPRAZOLE 40 MG TABLET.DR PO SCH (07:30)
[2022-01-27] MEDS: VANCOMYCIN 1.25 GM in IV D5W 250 ML IV SCH ×2 (08:22→21:22)
[2022-01-27] MEDS: HYDROCODONE/APAP 5/325MG TABLET PO PRN ×2 (08:22→20:54)
[2022-01-27] MEDS: DAKINS QUARTER STRENGTH (0.125%) 480 ML BOTTLE TOP SCH (08:22)
[2022-01-27] MEDS: PROSOURCE / PROSTAT (PYXIS) 30 ML UDC GT SCH ×2 (08:22→17:00)
[2022-01-27 16:07] LABS: BASOPHILS % (AUTO) 0.4 % (0.0-2.0); EOSINOPHILS % (AUTO) 3.1 % (0.0-6.0); HEMATOCRIT 27 % (39-51); HEMOGLOBIN 8.3 g/dL (13.5-17.5); LYMPHOCYTES # (AUTO) 1.1 K/uL (0.8-4.8); LYMPHOCYTES % (AUTO) 14.7 % (20.0-44.0); MEAN CORPUSCULAR HGB CONC 32 g/dl (31.0-36.0); MEAN CORPUSCULAR VOLUME 74 fL (80-96); MONOCYTES # (AUTO) 0.5 K/uL (0.1-1.30); MONOCYTES % (AUTO) 6.5 % (2.0-12.0); NEUTROPHILS # (AUTO) 5.8 K/uL (1.8-8.9); NEUTROPHILS % (AUTO) 75.3 % (43.0-81.0); PLATELET COUNT (AUTO) 680 K/uL (150-450); RED BLOOD CELL COUNT(AUTO) 3.57 MIL/uL (4.5-6.0); WHITE BLOOD COUNT (AUTO) 7.7 K/uL (4.3-11.0)
[2022-01-27 16:43] LABS: ALBUMIN 2.1 g/dL (3.4-5.0); BILIRUBIN,TOTAL 0.1 mg/dL (0.2-1.0); CALCIUM, SERUM 8.7 mg/dL (8.5-10.1); CREATININE 1.1 mg/dL (0.6-1.3); MAGNESIUM 2.2 mg/dL (1.8-2.4); PHOSPHORUS 3.8 mg/dL (2.5-4.9); POTASSIUM 4.3 mmol/L (3.5-5.1); TOTAL PROTEIN, SERUM 7.7 g/dL (6.4-8.2)
[2022-01-27 17:52] LABS: EOSINOPHILS % (MANUAL) 5 % (0-4); LYMPHOCYTES % (MANUAL) 20 % (16-48); MONOCYTES % (MANUAL) 3 % (0-11.0); NEUTROPHILS % (MANUAL) 72 (42-76)
[2022-01-27 20:00] VITALS: BP 116/53
[2022-01-27] MEDS: ENOXAPARIN SODIUM 40 MG/0.4 ML DISP.SYRIN SQ SCH (21:23)
[2022-01-27] MEDS: IV 1/2NS 1000 ML 1,000 ML IV PRN (23:45)
[2022-01-28] MEDS: ZOSYN IVPB 3.375 G in IV D5W 50ml IV SCH ×4 (06:07→23:18)
[2022-01-28] MEDS: PANTOPRAZOLE 40 MG TABLET.DR PO SCH (07:30)
[2022-01-28] MEDS: DAKINS QUARTER STRENGTH (0.125%) 480 ML BOTTLE TOP SCH (08:31)
[2022-01-28] MEDS: PROSOURCE / PROSTAT (PYXIS) 30 ML UDC GT SCH ×2 (08:32→17:00)
[2022-01-28 08:34] VITALS: BP 122/54
[2022-01-28 08:47] LABS: BASOPHILS # (AUTO) 0.1 K/uL (0.0-0.2); EOSINOPHILS % (AUTO) 3.3 % (0.0-6.0); HEMATOCRIT 25 % (39-51); HEMOGLOBIN 7.9 g/dL (13.5-17.5); LYMPHOCYTES # (AUTO) 1.1 K/uL (0.8-4.8); LYMPHOCYTES % (AUTO) 17.4 % (20.0-44.0); MEAN CORPUSCULAR HGB CONC 31 g/dl (31.0-36.0); MEAN CORPUSCULAR VOLUME 73 fL (80-96); MONOCYTES # (AUTO) 0.5 K/uL (0.1-1.30); MONOCYTES % (AUTO) 7.7 % (2.0-12.0); NEUTROPHILS # (AUTO) 4.6 K/uL (1.8-8.9); NEUTROPHILS % (AUTO) 70.6 % (43.0-81.0); PLATELET COUNT (AUTO) 636 K/uL (150-450); RED BLOOD CELL COUNT(AUTO) 3.47 MIL/uL (4.5-6.0); WHITE BLOOD COUNT (AUTO) 6.5 K/uL (4.3-11.0)
[2022-01-28 09:06] LABS: ALBUMIN 2.3 g/dL (3.4-5.0); BILIRUBIN,TOTAL 0.2 mg/dL (0.2-1.0); CALCIUM, SERUM 8.8 mg/dL (8.5-10.1); CREATININE 1.1 mg/dL (0.6-1.3); MAGNESIUM 2.2 mg/dL (1.8-2.4); PHOSPHORUS 3.4 mg/dL (2.5-4.9); POTASSIUM 3.8 mmol/L (3.5-5.1); TOTAL PROTEIN, SERUM 7.8 g/dL (6.4-8.2)
[2022-01-28] MEDS: VANCOMYCIN 1.25 GM in IV D5W 250 ML IV SCH ×2 (09:31→20:43)
[2022-01-28] MEDS: IV 1/2NS 1000 ML 1,000 ML IV PRN (16:05)
[2022-01-28 20:41] VITALS: BP 107/62
[2022-01-28] MEDS: HYDROCODONE/APAP 5/325MG TABLET PO PRN (20:44)
[2022-01-28] MEDS: ENOXAPARIN SODIUM 40 MG/0.4 ML DISP.SYRIN SQ SCH (20:57)
[2022-01-29 08:00] VITALS: BP 111/60
[2022-01-29] MEDS: PANTOPRAZOLE 40 MG TABLET.DR PO SCH (08:10)
[2022-01-29] MEDS: PROSOURCE / PROSTAT (PYXIS) 30 ML UDC GT SCH ×2 (08:12→09:00)
[2022-01-29] MEDS: VANCOMYCIN 1.25 GM in IV D5W 250 ML IV SCH (09:00)
[2022-01-29] MEDS: HYDROCODONE/APAP 5/325MG TABLET PO PRN (09:08)
[2022-01-29] MEDS: DAKINS QUARTER STRENGTH (0.125%) 480 ML BOTTLE TOP SCH (09:30)
[2022-01-29 10:35] LABS: CALCIUM, SERUM 8.6 mg/dL (8.5-10.1); CREATININE 1.1 mg/dL (0.6-1.3)
== END 2022-01-29 15:59 | disposition left against medical advice (07) | DRG 380 ==
LOC: ER 08:12 → TRANSITION 13:22 → MED 17:42
DX: L89.314 Pressure ulcer of right buttock, stage 4 (principal); G82.20 Paraplegia, unspecified; E44.0 Moderate protein-calorie malnutrition; M46.28 Osteomyelitis of vertebra, sacral and sacrococcygeal region; D63.8 Anemia in other chronic diseases classified elsewhere; E88.09 Other disorders of plasma-protein metabolism, not elsewhere classified; L89.324 Pressure ulcer of left buttock, stage 4; N31.9 Neuromuscular dysfunction of bladder, unspecified; D50.9 Iron deficiency anemia, unspecified; Z88.1 Allergy status to other antibiotic agents; Z88.2 Allergy status to sulfonamides; Z98.890 Other specified postprocedural states; W34.00XS Accidental discharge from unspecified firearms or gun, sequela; Z91.19 Patient's noncompliance with other medical treatment and regimen; Z59.00 Homelessness unspecified; Z18.89 Other specified retained foreign body fragments; F43.10 Post-traumatic stress disorder, unspecified; Z83.3 Family history of diabetes mellitus; F17.200 Nicotine dependence, unspecified, uncomplicated; K21.9 Gastro-esophageal reflux disease without esophagitis; F32.A Depression, unspecified; G89.29 Other chronic pain
CPT/HCPCS: 36415; 72132-TC; 80048-TC; 80053-TC; 80076-TC; 80202-TC; 83605-TC; 83735-TC; 84100-TC; 85025-TC; 85652-TC; 85730-TC; 86140-TC; 87040-TC; 87081-TC; A6253; A6403; G0378; J0692; J1650; J2543; J3370; J3490; J7050; J7060; Q9967